=== PATIENT | female | born 1960 | race Caucasian/White ===

== ENCOUNTER 2017-04-20 21:37 | Emergency (ER) | payer MEDICARE ==
[2017-04-20 21:46] VITALS: BP 127/68
--- NOTE | 2017-04-20 22:33 | RAD ---
Indication: Left wrist pain, left wrist injury 3 views of the wrist demonstrates no fracture. No other bone or joint abnormality is identified. IMPRESSION: NO FRACTURE OF THE WRIST IS NOTED.
--- NOTE | 2017-04-20 22:33 | RAD ---
Indication: Right wrist injury 3 views of the wrist demonstrates no fracture. No other bone or joint abnormality is identified. IMPRESSION: NO FRACTURE OF THE WRIST IS NOTED.
--- NOTE | 2017-04-20 22:52 | ED ---
Upper Extremity Pain - HPI Summary HPI Summary: Patient fell from a standing position and hurt her right wrist 4 days ago. She then fell today, catching herself with both wrists today. She felt immediate pain but thought they would get better, but as the day progressed her pain intensified. She has mild swelling in both wrists without bruising, redness or N /T. - History of Current Complaint Chief Complaint: EDExtremityUpper Stated Complaint: BILATERAL WRIST INJURIES FROM A FALL Time Seen by Provider: 04/20/17 22:39 Hx Obtained From: Patient, Family/Crib Attendant Mechanism Of Injury: Fall From A Standing Position Onset/Duration: Started Hours Ago, Traumatic, Still Present Timing: Constant Severity Initially: Moderate Severity Currently: Moderate Pain Location: Wrist Character: Aching, Stiffness Aggravating Factor(s): Movement Alleviating Factor(s): Nothing Associated Signs & Symptoms: Positive: Swelling Related History: Dominant Hand Right - Allergies/Home Medications Allergies/Adverse Reactions: Allergies Allergy/AdvReac Type Severity Reaction Status Date / Time NSAIDs AdvReac Severe Patient Verified 03/21/17 11:32 Has Bleeding Disorder bees Allergy ANAPHYLACTI Uncoded 08/24/16 17:18 C blueberries Allergy HIVES, Uncoded 08/24/16 17:18 TROUBLE BREATHING, SWELLING PMH/Surg Hx/FS Hx/Imm Hx Endocrine/Hematology History: Reports: Hx Blood Disorders - Can not take NSAIDS ; bleeding disorder, Hx Anemia - HISTORY, Other Endocrine/Hematological Disorders - Bleeding Disorder Denies: Hx Diabetes Cardiovascular History: Reports: Hx Angina - HISTORY OF, Hx Cardiac Arrest - 2010, Hx Coronary Artery Disease - 3 STENTS IN THE LAD, Hx Hypercholesterolemia , Other Cardiovascular Problems/Disorders - stents 2010 Denies: Hx Congestive Heart Failure, Hx Hypertension, Hx Pacemaker/ICD Respiratory History: Reports: Hx Sleep Apnea - uses CPap, Other Respiratory Problems/Disorders - SLEEP APNEA History: Reports: Hx Kidney Infection, Hx Kidney Stones - HISTORY OF KIDNEY STONES, Other Problems/Disorders - RIGHT KIDNEY IS NON FUNCTIONING Denies: Hx Dialysis, Hx Renal Disease Musculoskeletal History: Reports: Other Musculoskeletal History - left shoulder Sensory History: Reports: Hx Contacts or Glasses - GLASSES Denies: Hx Hearing Aid Opthamlomology History: Reports: Hx Contacts or Glasses - GLASSES Neurological History: Denies: Hx Seizures Psychiatric History: Reports: Hx Depression - ON MEDICATION FOR, Hx Post Traumatic Stress Disorder Denies: Hx Anxiety - hx of PTSD, Hx Panic Disorder - Cancer History Hx Chemotherapy: No Hx Radiation Therapy: No - Surgical History Surgery Procedure, Year, and Place: ENDOMETRIAL ABLATION; APPY; TUBIAL LIGATION ; D&C; RIGHT SHOULDER ROTATOR CUFF REPAIR; 3 CARDIAC STENTS ON 04/04/2011; ALL 3 STENTS ARE PROMUS DRUG-ELUTING STENTS PER CARDIAC CATH OP REPORT- CONDITIONAL 5- PATIENT TO BRING CARDS FOR STENTS W/ HER SO WE CAN SCAN THEM IN WELL Hx Anesthesia Reactions: No Infectious Disease History: No Infectious Disease History: Denies: Traveled Outside the [place] in Last 30 Days - Family History Known Family History: Positive: None - Social History Occupation: Unemployed Lives: With Family Alcohol Use: None Alcohol Amount: none since taking medications Substance Use Type: Reports: None Smoking Status (MU): Former Smoker Type: Cigarettes Amount Used/How Often: 1 1/2 PPD X 40+ YEARS Have You Smoked in the Last Year: No Review of Systems Positive: Arthralgia, Myalgia, Decreased ROM, Edema Negative: Bruising Negative: Paresthesia, Numbness All Other Systems Reviewed And Are Negative: Yes Physical Exam Triage Information Reviewed: Yes Vital Signs On Initial Exam: Initial Vitals Temp Pulse Resp BP Pulse Ox 98.4 F 80 19 127/68 98 04/20/17 21:44 04/20/17 21:44 04/20/17 21:44 04/20/17 21:44 04/20/17 21:44 Vital Signs Reviewed: Yes Appearance: Positive: Well-Appearing, Well-Nourished, Pain Distress Skin: Positive: Warm, Skin Color Reflects Adequate Perfusion, Dry, Soft Head/Face: Positive: Normal Head/Face Inspection Eyes: Positive: EOMI, RAMAKRISHNA, Conjunctiva Clear Respiratory/Lung Sounds: Positive: Breath Sounds Present Cardiovascular: Positive: RRR Musculoskeletal: Positive: Limited @ - movement in all planes is limited by pain bilaterally, Pain @ - Left wrist TTP over radial and ulna DRUJ; non-tender over carpals; Right wrist TTP over radial and ulna DRUJ; non-tender over carpals , Edema Left - mild on dorsum of wrist, Edema Right - mild on dorsum of wrist Neurological: Positive: Sensory/Motor Intact, Alert, Oriented to Person Place, Time, NV Bundle Intact Distally Psychiatric: Positive: Affect/Mood Appropriate AVPU Assessment: Alert Diagnostics - Vital Signs Vital Signs Temp Pulse Resp BP Pulse Ox 04/20/17 21:44 98.4 F 80 19 127/68 98 - Laboratory Lab Statement: Any lab studies that have been ordered have been reviewed, and results considered in the medical decision making process. - Radiology No standard instances Xray Interpretation: No Acute Changes Radiology Interpretation Completed By: Radiologist Course/Dx - Diagnoses Differential Diagnosis/HQI/PQRI: Positive: Arthritis, Bursitis, Contusion, Fracture (Closed), Hematoma, Strain, Sprain Provider Diagnoses: Strain of wrist, bilateral Discharge - Discharge Plan Condition: Stable Disposition: HOME Patient Education Materials: Wrist Sprain (ED) Referrals: Bernice Lorenzo MD [Primary Care Provider] - Additional Instructions: Wear your splints to protect you as your pain improves. Come out of the splints several times daily to perform gentle range of motion exercises to avoid stiffness. Elevate your hands above your heart and apply ice for 20 minutes several times daily to decrease swelling and pain. Use your regular pain medications as needed for pain management. Follow-up with your primary care provider if your symptoms do not begin to improve in the next 7-10 days. Return to the emergency department if your symptoms worsen.
== END 2017-04-20 23:18 | disposition home or self-care (01) ==
LOC: ED 21:37
DX: S66.912A Strain of unspecified muscle, fascia and tendon at wrist and hand level, left hand, initial encounter (principal); S66.911A Strain of unspecified muscle, fascia and tendon at wrist and hand level, right hand, initial encounter; W19.XXXA Unspecified fall, initial encounter; Y93.9 Activity, unspecified; Y92.9 Unspecified place or not applicable; Y99.9 Unspecified external cause status; Z87.891 Personal history of nicotine dependence
CPT/HCPCS: 99281

== ENCOUNTER → 2018-07-24 08:05 | Day surgery (SDC) | payer MEDICARE ==
[~2018-07-24 08:05] MED LIST: Flumazenil* 0.1 MG/ML 5 ML MDV ONE; Heparin 2 UNITS/ML IVPREMIX* 2,000 ML IV ONE; Heparin(*) 1000 UNIT/ML 10 ML VIAL CATH LAB IV ONE; Iodixanol* (CONTRAST) 320 MG/ML 100 ML SDV ONE; Iohexol 350 (CONTRAST) 200 ML MDV IV ONE; Lidocaine 1% INJ* 10 MG/ML 30 ML SDV ONE; Midazolam* 1 MG/ML 10 ML VIAL (10 MG) ONE; NS 0.9% 1000 ML* 1,000 ML IV SCH; Naloxone* 0.4 MG/ML 1 ML VIAL ONE; VERAPAMIL 2.5 MG/ML 2 ML VIAL ** 5 mg/2 ml ONE; fentaNYL* 50 MCG/ML 2 ML VIAL (100 MCG VIAL) ONE; nitroGLYCERIN DRIP* 25,000 MCG/250 ML BTL ONE
[2018-07-24 12:26] VITALS: BP 122/83
--- NOTE | 2018-07-25 03:33 | CATH ---
CC: Dr. Bernice Lorenzo * CARDIAC CATHETERIZATION REPORT: DATE OF PROCEDURE: 07/24/18 - [facility] DEGRE[facility]ER INDICATION FOR THE PROCEDURE: The patient with continued anginal symptoms with exertion with an abnormal nuclear stress test revealing a large area of the infarct to the anterior wall with overall EF estimated at 49% with the history of prior stenting of the LAD and diagonal, assess for progressive coronary artery disease. The procedure was coronary arteriography, left heart catheterization, left ventriculography. PRECARDIAC CATHETERIZATION LABORATORY RESULTS: Hemoglobin and hematocrit of 12.6 and 38 with a platelet count of 166,000. BUN and creatinine of 14 and 1. INR 0.9. Sodium 142, potassium 3.9, chloride 110, bicarb 25. EQUIPMENT UTILIZED DURING THE PROCEDURE: 1. Right radial artery sheath: A 6-Marshallese Glidesheath. 2. Diagnostic coronary catheter: A 5-Marshallese TIG 4 curve catheter. 3. The guidewire utilized: A 260 cm length Agarwal-curved guidewire. 4. Left heart catheterization catheter: A 5-Marshallese TIG Performa radial catheter. MEDICATIONS GIVEN DURING THE PROCEDURE: Versed 1 mg radial artery cocktail including 3000 units of heparin, 300 mcg of nitroglycerin and 3 mg of verapamil intra-arterially, 1% lidocaine for anesthetizing the right radial artery area. APPROACH: Right radial artery. PROCEDURE: The patient was interviewed and examined in the holding area where the risks and benefits were again explained. She understood them and wished to proceed. The right radial artery was assessed in the holding area under ultrasound for size and found to be appropriate for an approach. The patient was brought into the cardiovascular laboratory where a formal time- out was performed. The patient was prepped and draped in sterile fashion. The right radial artery area was anesthetized with 1% lidocaine and under ultrasound guidance, the right radial artery was cannulated and the sheath was placed. Diagnostic coronary arteriography was performed followed by central aortic pressure utilizing the TIG Performa radial catheter. The catheter was then passed across the aortic valve into the left ventricle where the left ventricular pressure was recorded. Left ventriculography was performed utilizing a total of 24 cc of Omnipaque dye at a rate of 12 cc/sec. The catheter was then pulled back across the aortic valve to recheck gradient. Following this, the catheter was removed and hemostasis was obtained with a Vas band. The reverse Barbeau was found to be a B. The total contrast used was 80 cc of Omnipaque dye. The radiation exposure included 7.3 minutes of fluoro time. The air kerma radiation was 1193 milligray. The DAP radiation was 7388 microgray per meter squared. RESULTS: HEMODYNAMIC DATA: Left heart catheterization - central aortic pressure recorded at 124/67 with a mean at 92. Left ventricular pressure 120 over left ventricular end- diastolic pressure of 20 to 22 mmHg. CORONARY ARTERIOGRAPHY: A. Right coronary artery - a dominant vessel supplying the PDA and a posterior left ventricular branch. There was no significant stenosis seen throughout the course of the vessel. Its most distal branchers were extremely thin in nature. No focal stenosis of significance was seen. B. Left coronary artery: 1. Left main - widely patent. No significant blockage noted. 2. Left anterior descending artery - the left anterior descending artery traversed to the apical region and very mildly onto the distal inferior wall. There was overlapping stent seen in the proximal to mid portion. There was a stent noted in the first diagonal branch in its proximal portion. The ostium of that diagonal branch appeared to have a 30% narrowing and just after that branch the LAD within the stented area had a narrowing of approximately 25% in its worst view. Other view suggested no significant obstruction. The rest of the left anterior descending arteries supplied thin diagonal branches but there was no focal stenosis seen. 3. Circumflex artery - a nondominant vessel supplying a very thin high first obtuse marginal branch followed by a trifurcating moderate to large obtuse marginal branch. There was no significant disease seen throughout the course of this vessel. LEFT VENTRICULOGRAPHY: Performed in the MCKEE projection revealed preservation of the proximal to mid inferior wall with akinesis of the apex and moderate hypokinesis of the mid to distal anterior wall and the mid to distal inferior wall. Overall ejection fraction was difficult to estimate given a run of ventricular tachycardia. Best estimate of LVEF visually was 40%. OVERALL ASSESSMENT: No significant stenotic coronary artery disease seen with very mild in-stent restenosis seen in only the BULGARIAN cranial view in the LAD and in the ostium of the diagonal branch. Continued medical management for left intraarticular systolic dysfunction with consideration for evaluation at the Congestive Heart Failure Service at [facility] for other recommendations given the patient's inability to tolerate medications due to hypotension. [id number]/[facility] #: [id number] [facility]
== END | disposition home or self-care (01) ==
LOC: CHICATH 08:05
PROVIDERS: ATTEND Internal Medicine Cardiovascular Disease
DX: I25.118 Atherosclerotic heart disease of native coronary artery with other forms of angina pectoris (principal); I25.5 Ischemic cardiomyopathy; R07.9 Chest pain, unspecified; R06.02 Shortness of breath; I34.0 Nonrheumatic mitral (valve) insufficiency; Z95.5 Presence of coronary angioplasty implant and graft; I25.2 Old myocardial infarction; R42 Dizziness and giddiness; I10 Essential (primary) hypertension; G47.33 Obstructive sleep apnea (adult) (pediatric); E78.5 Hyperlipidemia, unspecified; Z87.891 Personal history of nicotine dependence
CPT/HCPCS: 76937; 93005; 93458; J1644; J2250; J2310; J3010

== ENCOUNTER → 2018-08-06 16:28 | Day surgery (SDC) | payer MEDICARE ==
--- NOTE | 2018-08-03 08:08 | HP ---
CC: Bernice Lorenzo MD; Nikita Link MD * ADMITTING HISTORY AND PHYSICAL: DATE OF ADMISSION: 08/06/18 ADMITTING DIAGNOSES: 1. Calculus, left ureter. 2. Left hydronephrosis. PLANNED PROCEDURE: Left ureteroscopy, possible laser and stent insertion. SURGEON: Obdulio Wells MD HISTORY OF PRESENT ILLNESS: Jade Parra is a 58-year-old lady with a history of recurrent bilateral renal calculi. She had been evaluated at hospital in the [facility] on 06/16/18 and was noted at that time to have a 4 mm calculus in the left distal ureter with evidence of obstruction. She did not seek any followup care and I was made aware of this for the first time on 08/02/18 and an ultrasound was done in my office, which revealed a persistent 4 mm calculus in the left ureter with mild to moderate left hydronephrosis. The concerning factors that the left kidney is the better of her two kidneys as she is known to have an atrophic right kidney. Interestingly, a recent test of her renal function showed fairly normal serum creatinine and she also recently underwent a cardiac catheterization procedure. She is now being brought in for left ureteroscopy, possible laser and stent insertion. I discussed this with Dr. Fernandez and he felt that she could safely stop her Plavix for this procedure. PAST MEDICAL HISTORY: Significant for: 1. Coronary artery disease (has coronary stents placed several years ago). 2. Sleep apnea syndrome. 3. Primary cardiomyopathy. 4. Thrombocytopenia. MEDICATIONS ON ADMISSION: 1. Gabapentin 200 mg at bedtime. 2. Potassium citrate 20 mEq twice a day. 3. Atorvastatin 20 mg daily. 4. Amlodipine 2.5 mg b.i.d. 5. Plavix, which is currently on hold. 6. Aspirin 81 mg a day. 7. Metoprolol 12.5 mg daily. 8. Topamax 100 mg b.i.d. (this medication has been known to lower urinary citrate and increase stone formation). 9. Magnesium oxide 400 mg daily. 10. Loratadine 10 mg daily. 11. Cymbalta 60 mg daily. 12. Morphine sulfate 15 mg 1 tablet every 4 hours as needed. 14. Fentanyl 12 mcg patch every 3 days. 15. Medical marijuana. 16. Aripiprazole 5 mg daily. ALLERGIES AND INTOLERANCES: Nonsteroidals. PHYSICAL EXAMINATION GENERAL: Reveals a pleasant middle aged lady. VITAL SIGNS: Blood pressure is 112/72, heart rate 76 per minute, oxygen saturation 95% on room air. LUNGS: Clear bilaterally. CARDIOVASCULAR: Regular rate and rhythm. S1, S2. ABDOMEN: Soft with left flank tenderness. IMPRESSION: A 58-year-old lady with a persistent 4 mm calculus in the left distal ureter, which has been present at least since 06/16/18 and which had initially presented with gross hematuria, which has resolved. PLAN: Left ureteroscopy, possible laser and stent insertion, the fact that the calculus has been impacted for more than 6 weeks puts her at higher risk for a stricture of the ureter, so I will probably plan to leave the stent in for little bit longer postoperatively. [id number]/[facility] #: [id number] [facility]
[~2018-08-06 16:28] MED LIST changes: +Buffered Lidocaine 0.9% SYRIN* 5 ML/SYR SYRINGE INTRADERM ONE; +Buffered Lidocaine 0.9% SYRIN* 5 ML/SYR SYRINGE ONE; +Dexamethasone IV* 4 MG/ML 1 ML (4 MG) IV SLOW PU ONE; +Dexamethasone IV* 4 MG/ML 1 ML (4 MG) ONE; +DiMENhydriNATE IV* 50 MG/ML VIAL IV PUSH PRN; +Famotidine IV* 10 MG/ML 2 ML (20 mg) IV ONE; +Famotidine IV* 10 MG/ML 2 ML (20 mg) ONE; -Flumazenil* 0.1 MG/ML 5 ML MDV ONE; -Heparin 2 UNITS/ML IVPREMIX* 2,000 ML IV ONE; -Heparin(*) 1000 UNIT/ML 10 ML VIAL CATH LAB IV ONE; -Iodixanol* (CONTRAST) 320 MG/ML 100 ML SDV ONE; -Iohexol 350 (CONTRAST) 200 ML MDV IV ONE; +Levalbuterol 0.63MG/3ML NEB* UNIT OF USE INH ONE; -Lidocaine 1% INJ* 10 MG/ML 30 ML SDV ONE; +Lidocaine 2% PF * 5 ML VIAL ONE; -Midazolam* 1 MG/ML 10 ML VIAL (10 MG) ONE; +Midazolam* 1 MG/ML 5 ML VIAL (5 MG) ONE; -NS 0.9% 1000 ML* 1,000 ML IV SCH; +Naloxone* 0.4 MG/ML 1 ML VIAL IV PRN; -Naloxone* 0.4 MG/ML 1 ML VIAL ONE; +Ondansetron INJ* 2 MG/ML VIAL IV PRN; +Ondansetron INJ* 2 MG/ML VIAL ONE; +Propofol* 10 MG/ML 20 ML BTL IV PUSH ONE; -VERAPAMIL 2.5 MG/ML 2 ML VIAL ** 5 mg/2 ml ONE; +cefTRIAXone(*) 1 GM ADVAN/BAG ONE; +fentaNYL* 50 MCG/ML 2 ML VIAL (100 MCG VIAL) IV PRN; -nitroGLYCERIN DRIP* 25,000 MCG/250 ML BTL ONE; +oxyCODONE/Acetamin 5/325 MG* TAB PO PRN
--- NOTE | 2018-08-06 18:01 | RAD ---
CPT II Codes: G9500 INDICATION: Kidney stones TECHNIQUE: Intraoperative fluoroscopy was provided during retrograde pyelography and left ureteral stent placement. FINDINGS: 3 spot films depict retrograde pyelography demonstrating very mildly dilated left renal collecting system followed by anatomic placement of a left ureteral stent.. Fluoroscopy time: 5 seconds IMPRESSION: As above.
[2018-08-06 18:39] VITALS: BP 147/87
--- NOTE | 2018-08-07 03:50 | OP ---
CC: Dr. Bernice Lorenzo; Dr. Nikita Link; Dr. Archana Fernandez * DATE OF OPERATION: 08/06/18 - [facility] DATE OF : 60 SURGEON: Obdulio Wells MD ANESTHESIOLOGIST: Dr. Mehta. ANESTHESIA: General. PRE-OP DIAGNOSES: 1. Left hydronephrosis. 2. Calculus impacted in left distal ureter. POST-OP DIAGNOSES: 1. Left hydronephrosis. 2. Calculus impacted in left distal ureter. OPERATIVE PROCEDURE: Cystoscopy, left retrograde pyelogram, left ureteroscopy, laser lithotripsy of left ureteral calculus and removal of calculus fragments, and left stent insertion. COMPLICATIONS: None. STENT USED: A 8-Algerian stent, left ureter. OPERATIVE FINDINGS: Approximately 4 to 5 mm calculus impacted in left distal ureter with significant surrounding edema and inflammation and resultant left hydronephrosis and hydroureter. INDICATIONS: Jade Parra is a 58-year-old lady with recurrent renal calculi. She had been evaluated at the hospital in [facility] in May and at that time was noted to have an obstructing calculus in the left distal ureter. She did not seek attention for this up until a few days ago when she saw me and I noticed that the calculus which had been in the ureter in May was pretty much in the same position. She is now being brought in for management of the calculus. POSTOPERATIVE CONDITION: Stable. DESCRIPTION OF PROCEDURE: After induction of general anesthesia, the patient was placed in dorsal lithotomy position. Sequential compression devices were in place and functioning. Initial cystoscopy revealed significant edema and inflammation surrounding the left orifice. Surprisingly, there was still urine coming out through the orifice in spite of the pretty significant amount of edema and inflammation. Initial attempts at getting a wire to go pass the obstructing calculus were unsuccessful. Then, I switched to hydrophilic glidewire which was used to overcome the obstruction and advance into the proximal collecting system. Once this was done, an open-ended catheter could be advanced and retrograde pyelogram revealed left hydronephrosis with dilated tortuous proximal left ureter. A 6-Algerian semi-rigid ureteroscope was introduced and advanced under direct vision. There was considerable edema and inflammation noted at the site of calculus impaction just inside the ureterovesical junction, maybe about 1 cm or 2 from the orifice. Using a 550 micron holmium laser, the calculus was successfully broken up into multiple fragments, and two of the sizable fragments were removed. The remaining fragments were all less than a millimeter if that. The ureteroscope was advanced into the mid ureter which was significantly dilated but no additional stones were noted. An 8-Algerian stent was introduced and positioned under fluoroscopy with good proximal and distal positioning obtained. The patient is certainly at higher risk for stricture formation because of the calculus that had been impacted and the significant inflammatory response. So, my plan is to hopefully leave the stent in for 3 to 4 weeks to minimize the risk of stricture. The patient tolerated the procedure satisfactorily and was transferred back to recovery area in stable condition. [id number]/[facility] #: [id number] DARLENE
== END | disposition home or self-care (01) ==
LOC: OR 16:28
PROVIDERS: ATTEND Urology
DX: N13.2 Hydronephrosis with renal and ureteral calculous obstruction (principal); N26.1 Atrophy of kidney (terminal); I25.10 Atherosclerotic heart disease of native coronary artery without angina pectoris; Z95.5 Presence of coronary angioplasty implant and graft; G47.33 Obstructive sleep apnea (adult) (pediatric); I42.9 Cardiomyopathy, unspecified; D69.6 Thrombocytopenia, unspecified; Z79.01 Long term (current) use of anticoagulants
CPT/HCPCS: 74420; 82365; 88300; C1876; J0696; J1100; J2250; J2405; J2704; J3010